=== PATIENT | male | born 1950 | race Caucasian/White ===

== ENCOUNTER 2018-08-03 13:19 | Emergency (ER) | payer BC, MEDICARE ==
[2018-08-03] MEDS ORDERED: Bacitracin Oint 1 GM U/D Packet TOP ONE (14:07)
[2018-08-03] MEDS ORDERED: Lidocaine 1% with EPINEPHrine 1:100,000 50 ML MDV SUBCUT STA (14:07)
--- NOTE | 2018-08-03 14:11 | EDM.PDOC ---
ED HPI GENERAL MEDICAL PROBLEM - General Chief Complaint: Laceration Stated Complaint: CUT LEFT FOREHEAD Time Seen by Provider: 08/03/18 14:05 Source of Information: Reports: Patient, RN Notes Reviewed History Limitations: Reports: No Limitations - History of Present Illness INITIAL COMMENTS - FREE TEXT/NARRATIVE: 68-year-old gentleman presents emergency department today with complaint of laceration above his left eyebrow, he injured himself when he accidentally hit a piece of sharp metal no other complaints - Related Data Allergies Allergy/AdvReac Type Severity Reaction Status Date / Time No Known Allergies Allergy Verified 08/03/18 13:40 Home Meds: Home Meds NK [No Known Home Meds] 08/03/18 [History] Past Medical History - Past Surgical History GI Surgical History: Reports: Hernia, Abdominal Musculoskeletal Surgical History: Reports: Arthroscopic Knee, Arthroscopic Procedure, Other (See Below) Other Musculoskeletal Surgeries/Procedures:: right hand amputation Social & Family History - Tobacco Use Smoking Status *Q: Never Smoker ED ROS GENERAL - Review of Systems Review Of Systems: See Below Skin: Reports: Wound ED EXAM, SKIN/RASH Exam: See Below Exam Limited By: No Limitations General Appearance: Alert, WD/WN, No Apparent Distress Respiratory/Chest: No Respiratory Distress Front/Back Body Diagram: 1 - 2 cm laceration completely through the dermis ED SKIN PROCEDURES - Laceration/Wound Repair Left Face Lac/Wound length In cm: 2 Appearance: Subcutaneous, Linear, Clean Distal NVT: Neuro & Vascular Intact, No Tendon Injury Anesthetic Type: Local Local Anesthesia - Lidocaine (Xylocaine): 1% with EPI Local Anesthetic Volume: 1cc Skin Prep: Saline Saline Irrigation (cc's): 40 Exploration/Debridement/Repair: Wound Explored, In a Bloodless Field, Explored to Base Closed with: Sutures Suture Size: other (5-0) # of Sutures: 4 Suture Type: Nylon, Interrupted Suture Size: other (5-0) # of Sutures: 2 Repaired with: Vicryl Drain Placement: No Sterile Dressing Applied: Nurse Tetanus Status Addressed: Yes (2 years ago) Complications: No Course - Vital Signs Last Recorded V/S: Last Vital Signs Temp 97.9 F 08/03/18 13:47 Pulse 77 08/03/18 13:47 Resp 14 08/03/18 13:47 BP 147/86 H 08/03/18 13:47 Pulse Ox 98 08/03/18 13:47 - Orders/Labs/Meds Meds: Medications Discontinued Medications Generic Name Dose Route Start Last Admin Trade Name Nurys PRN Reason Stop Dose Admin Bacitracin 1 dose 08/03/18 14:07 Bacitracin Oint 1 Gm TOP 08/03/18 14:08 ONETIME ONE Lidocaine/Epinephrine 20 ml 08/03/18 14:07 Xylocaine 1% With Epinephrine 1:100,000 SUBCUT 08/03/18 14:08 NOW STA Departure - Departure Time of Disposition: 14:26 Disposition: Home, Self-Care 01 Condition: Good Clinical Impression: Laceration of left eyebrow Qualifiers: Encounter type: initial encounter Qualified Code(s): S01.112A - Laceration without foreign body of left eyelid and periocular area, initial encounter - Discharge Information Instructions: Laceration Care, Adult Referrals: PCP,None [Primary Care Provider] - Forms: ED Department Discharge Additional Instructions: Follow wound care instruction sheet, suture removal in 3-4 days, follow-up with primary care or return to emergency department for removal - Assessment/Plan Plan: Assessment Acuity = acute Site and laterality = 2 cm laceration eyebrow side of the face Etiology = secondary to trauma Manifestations = none Location of injury = Home Lab values = none Plan Suture removal in 3-4 days, follow wound care instruction sheet This note was dictated using [employer] voice recognition software please call with any questions on syntax or grammar.
== END 2018-08-03 14:38 | disposition home or self-care (01) ==
LOC: JP.ED 13:19
DX: S01.112A Laceration without foreign body of left eyelid and periocular area, initial encounter (principal); W26.8XXA Contact with other sharp object(s), not elsewhere classified, initial encounter
CPT/HCPCS: 12011; 99282